=== PATIENT | male | born 1990 | race Caucasian/White ===

== ENCOUNTER 2022-08-21 23:57 | Emergency (ER) | payer SELFPAY ==
[2022-08-22] MEDS ORDERED: MAGNESIUM SULFATE 2 GRAM 2 GM/50 ML BAG IV ONE (00:48)
[2022-08-22] MEDS ORDERED: FOLIC ACID INJ 1 MG in SODIUM CHLORIDE 0.9% 1,000 ML IV STA ×2 (00:48→00:55)
[2022-08-22] MEDS ORDERED: THIAMINE INJ 100 MG in SODIUM CHLORIDE 0.9% 50 ML IV STA (00:48)
[2022-08-22] MEDS ORDERED: SODIUM CHLORIDE 0.9% 1,000 ML IV STA ×2 (00:49→11:50)
[2022-08-22] MEDS ORDERED: LORazepam 2 MG/ML VIAL IVP STA ×2 (00:49→11:50)
--- NOTE | 2022-08-22 00:51 | ED Physician Documentation ---
History of Present Illness - Stated complaint Stated Complaint: SOA - Chief complaint Chief Complaint: General - History obtained from History obtained from: Patient - History of Present Illness Timing: Today - Additonal information Additional information: 32-year-old [place] ortega indicates that he drinks regularly about 1/5/day of vodka and whiskey and that today he has developed a panic attack. He states that he feels very anxious and so much so that when he was driving on the way to the hospital here he had to ice puller put his flashers on and someone pulled up behind him and took him to the hospital. He states this is happened to him 1 other time he was in the hospital in [place] and was told at that time his alcohol level is too high and he was at risk for cirrhosis. The patient is a poor historian and has some latency in his speech when giving history. Review of Systems Constitutional: denies: Fever Eyes: denies: Decreased vision Ears: denies: Ear pain Nose: denies: Congestion Throat: denies: Sore throat Cardiac: denies: Chest pain / pressure Respiratory: denies: Dyspnea, Cough GI: denies: Abdominal Pain, Nausea, Vomiting, Constipation, Diarrhea : denies: Dysuria, Frequency Skin: denies: Rash Musculoskeletal: denies: Neck pain, Back pain, Extremity pain Neurologic: denies: Generalized weakness, Focal weakness, Numbness PD PAST MEDICAL HISTORY - Allergies Allergies/Adverse Reactions: Allergies Allergy/AdvReac Type Severity Reaction Status Date / Time No Known Drug Allergies Allergy Verified 08/22/22 00:22 PD ED PE NORMAL - Vitals Vital signs reviewed: Yes (Tachycardic tachypneic and hypertensive marked) - General General: Alert and oriented X 3, Well developed/nourished, Other (The patient has halting speech with significant latency and only after he speaks for a period of time to see a speech become more fluent. He does have alcohol on breath.) - HEENT HEENT: Atraumatic, PERRL, EOMI - Neck Neck: Supple, no meningeal sign, No bony TTP - Cardiac Cardiac: No murmur, Other (Tachycardic to 120) - Respiratory Respiratory: No respiratory distress, Clear bilaterally - Abdomen Abdomen: Normal bowel sounds, Soft, Non tender, Non distended, No organomegaly - Back Back: No CVA TTP, No spinal TTP - Derm Derm: Normal color, Warm and dry, No rash - Extremities Extremities: No deformity - Neuro Neuro: automatic folder seamer 2-12 intact, No motor deficit, No sensory deficit, Other (There is significant speech latency and delay in execution of motor commands.) Eye Opening: Spontaneous Motor: Obeys Commands Verbal: Oriented GCS Score: 15 - Psych Psych: Other (Mood is anxious and the affect is blunted) Results - Vitals Vitals: Vital Signs - 24 hr 08/22/22 08/22/22 08/22/22 00:19 00:24 01:00 Temperature 36.9 C Heart Rate 111 H 117 H 83 Respiratory 30 H 27 H 20 Rate Blood Pressure 152/114 H 141/88 H 136/92 H O2 Saturation 98 100 92 08/22/22 08/22/22 08/22/22 02:00 03:00 04:00 Temperature Heart Rate 82 89 95 Respiratory 18 17 20 Rate Blood Pressure 130/90 H 133/78 H 129/85 H O2 Saturation 96 93 95 08/22/22 08/22/22 08/22/22 05:00 06:00 08:00 Temperature Heart Rate 79 86 88 Respiratory 16 15 18 Rate Blood Pressure 137/85 H 129/85 H 130/74 O2 Saturation 96 95 96 Oxygen O2 Source Room air - Labs Labs: Laboratory Tests 08/22/22 08/22/22 08/22/22 00:58 00:58 00:58 WBC 8.1 RBC 5.12 Hgb 16.9 Hct 47.4 MCV 92.6 MCH 33.0 H MCHC 35.7 RDW 12.5 Plt Count 474 H MPV 8.9 Neut # (Auto) 3.0 Lymph # (Auto) 4.5 H Catron # (Auto) 0.5 Eos # (Auto) 0.0 Baso # (Auto) 0.0 Absolute Nucleated RBC 0.00 Nucleated RBC % 0.0 PT INR Sodium 140 Potassium 2.8 L Chloride 102 Carbon Dioxide 20 L Anion Gap 18.0 H BUN 9 Creatinine 1.0 Estimated GFR (MDRD) 87 L Glucose 100 Calcium 8.8 Total Bilirubin 0.5 AST 118 H ALT 282 H Alkaline Phosphatase 79 Total Protein 8.2 Albumin 4.9 Globulin 3.3 Albumin/Globulin Ratio 1.5 Lipase 33 TSH 6.23 H Thyroxine (T4) Urine Color Urine Clarity Urine pH Ur Specific Colo Urine Protein Urine Glucose (UA) Urine Ketones Urine Occult Blood Urine Nitrite Urine Bilirubin Urine Urobilinogen Ur Leukocyte Esterase Ur Microscopic Review Urine Culture Comments Urine Opiates Screen Ur Oxycodone Screen Urine Methadone Screen Ur Propoxyphene Screen Ur Barbiturates Screen Ur Tricyclics Screen Ur Phencyclidine Scrn Ur Amphetamine Screen U Methamphetamines Scrn U Benzodiazepines Scrn Urine Cocaine Screen U Cannabinoids Screen Ethyl Alcohol 351.2 Serum Ketones NEGATIVE 08/22/22 08/22/22 08/22/22 00:58 01:17 08:08 WBC RBC Hgb Hct MCV MCH MCHC RDW Plt Count MPV Neut # (Auto) Lymph # (Auto) Catron # (Auto) Eos # (Auto) Baso # (Auto) Absolute Nucleated RBC Nucleated RBC % PT 12.5 INR 1.1 Sodium Potassium Chloride Carbon Dioxide Anion Gap BUN Creatinine Estimated GFR (MDRD) Glucose Calcium Total Bilirubin AST ALT Alkaline Phosphatase Total Protein Albumin Globulin Albumin/Globulin Ratio Lipase TSH Thyroxine (T4) 6.95 Urine Color YELLOW Urine Clarity CLEAR Urine pH 6.0 Ur Specific Colo >=1.030 H Urine Protein TRACE Urine Glucose (UA) NEGATIVE Urine Ketones 15 H Urine Occult Blood NEGATIVE Urine Nitrite NEGATIVE Urine Bilirubin NEGATIVE Urine Urobilinogen 0.2 (NORMAL) Ur Leukocyte Esterase NEGATIVE Ur Microscopic Review NOT INDICATED Urine Culture Comments NOT INDICATED Urine Opiates Screen NEGATIVE Ur Oxycodone Screen NEGATIVE Urine Methadone Screen NEGATIVE Ur Propoxyphene Screen NEGATIVE Ur Barbiturates Screen NEGATIVE Ur Tricyclics Screen NEGATIVE Ur Phencyclidine Scrn NEGATIVE Ur Amphetamine Screen NEGATIVE U Methamphetamines Scrn NEGATIVE U Benzodiazepines Scrn POSITIVE H Urine Cocaine Screen NEGATIVE U Cannabinoids Screen POSITIVE H Ethyl Alcohol Serum Ketones PD Medical Decision Making - ED course Complexity details: reviewed results, re-evaluated patient, considered differential, d/w patient Reviewed Lab Results: We reviewed a complete blood count which was normal when reviewed coagulation parameters which were normal as well reviewed chemistries which showed a low potassium at 2.8 and elevation of the AST and ALT ALT in the 100s. A TSH was elevated at 6.23. Ethyl alcohol was 351 and serum ketones were negative ED course: 32-year-old male presenting to the emergency department with a panic attack appears intoxicated on arrival and he does appear anxious. He is administered some Ativan and a banana bag has some improvement. I did discuss with the patient alcohol treatment and he is willing to participate and is invested in treatment. At shift change the patient is intoxicated and sleeping but interested in alcohol services. We do not have a social professionals here today. Care is turned over to Dr. Carey. Departure - Departure Clinical Impression: Panic attack Alcohol intoxication Qualifiers: Complication of substance-induced condition: with delirium Qualified Code(s): F10.921 - Alcohol use, unspecified with intoxication delirium
[2022-08-22] MEDS ORDERED: FOLIC ACID IV STA ×5 (01:03)
[2022-08-22] MEDS ORDERED: [UNRECOGNIZED DRUG - OTHER] IV STA ×5 (01:03)
[2022-08-22] MEDS ORDERED: MULTIVITAMIN IV STA ×5 (01:03)
[2022-08-22] MEDS ORDERED: THIAMINE IV STA ×5 (01:03)
[2022-08-22] MEDS ORDERED: FOLIC ACID 5 MG/1 ML 10ML MDV ONE (01:12)
[2022-08-22] MEDS ORDERED: THIAMINE 100 MG/1 ML 2 ML MDV ONE (01:12)
[2022-08-22] MEDS ORDERED: MAGNESIUM SULFATE 1 GM/2 ML VIAL ONE (01:12)
[2022-08-22 01:18] LABS: BASOPHILS % (AUTO) 0.5 %; EOSINOPHILS % (AUTO) 0.5 %; HCT - HEMATOCRIT 47.4 % (42.0-52.0); HGB - HEMOGLOBIN 16.9 g/dL (14.0-18.0); LYMPHOCYTES # (AUTO) 4.5 10^3/uL (1.5-3.5); LYMPHOCYTES % (AUTO) 54.9 %; MEAN CORPUSCULAR HGB CONC 35.7 g/dL (32.0-36.0); MEAN CORPUSCULAR VOLUME 92.6 fL (80.0-94.0); MEAN PLATELET VOLUME 8.9 fL (7.4-11.4); MONOCYTES # (AUTO) 0.5 10^3/uL (0.0-1.0); MONOCYTES % (AUTO) 6.5 %; NEUTROPHILS % (AUTO) 37.5 %; PLT - PLATELET COUNT 474 10^3/uL (130-450); RED BLOOD COUNT 5.12 10^6/uL (4.70-6.10); RED CELL DISTRIBUTION WIDTH 12.5 % (12.0-15.0); WHITE BLOOD COUNT 8.1 x10^3/uL (4.8-10.8)
[2022-08-22 01:23] LABS: ALBUMIN 4.9 g/dL (3.2-5.5); ALBUMIN/GLOBULIN RATIO 1.5 (1.0-2.2); ALKALINE PHOSPHATASE 79 IU/L (42-121); ALT ALANINE AMINOTRANSFERASE 282 IU/L (10-60); AST ASPARTATE AMINOTRANSFERASE 118 IU/L (10-42); BILIRUBIN,TOTAL 0.5 mg/dL (0.2-1.0); BUN - BLOOD UREA NITROGEN 9 mg/dL (6-20); CALCIUM 8.8 mg/dL (8.5-10.3); CARBON DIOXIDE - CO2 20 mmol/L (21-32); CHLORIDE 102 mmol/L (101-111); ETOH - ETHANOL 351.2 mg/dL; GFR - MDRD 87 (>89); GLUCOSE 100 mg/dL (70-100); LIPASE 33 U/L (22-51); POTASSIUM 2.8 mmol/L (3.5-5.0); SODIUM 140 mmol/L (135-145); TOTAL PROTEIN 8.2 g/dL (6.7-8.2)
[2022-08-22 01:27] LABS: INR 1.1 (0.8-1.2); PT - PROTHROMBIN TIME 12.5 secs (9.9-12.6)
[2022-08-22] MEDS ORDERED: POTASSIUM CHLOR 10 MEQ/100 ML 10 MEQ/100 ML BAG IV ONE (01:29)
[2022-08-22] MEDS ORDERED: POTASSIUM CHLORIDE 20 MEQ TABLET PO STA (01:29)
[2022-08-22 01:31] LABS: KETONES, SERUM (ACETEST) NEGATIVE (NEGATIVE)
[2022-08-22 08:09] LABS: MUDS CUTOFF CONCENTRATIONS CUTOFF CONC BELOW:
[2022-08-22 08:12] LABS: BILIRUBIN,URINE NEGATIVE (NEGATIVE); GLUCOSE, URINE (UA) NEGATIVE (NEGATIVE); KETONES,URINE (UA) 15 mg/dL (NEGATIVE); LEUKOCYTE ESTERASE, URINE NEGATIVE (NEGATIVE); NITRITE,URINE NEGATIVE (NEGATIVE); OCCULT BLOOD,URINE NEGATIVE (NEGATIVE); PROTEIN,URINE TRACE mg/dL (NEGATIVE); UROBILINOGEN,URINE 0.2 (NORMAL) E.U./dL (NORMAL)
[2022-08-22 08:22] LABS: CLARITY,URINE CLEAR (CLEAR)
[2022-08-22 08:23] LABS: AMPHETAMINE SCREEN,URINE NEGATIVE (NEGATIVE); BARBITURATE SCREEN,UR NEGATIVE (NEGATIVE); BENZODIAZEPINES SCREEN, URINE POSITIVE (NEGATIVE); COCAINE SCREEN URINE NEGATIVE (NEGATIVE); METHADONE SCREEN, URINE NEGATIVE (NEGATIVE); METHAMPHETAMINES SCREEN, URINE NEGATIVE (NEGATIVE); OPIATE SCREEN, URINE NEGATIVE (NEGATIVE); OXYCODONE SCREEN, URINE NEGATIVE (NEGATIVE); PROPOXYPHENE SCREEN, URINE NEGATIVE (NEGATIVE); THC CANNABINOID SCREEN, URINE POSITIVE (NEGATIVE); TRICYCLIC ANTIDEPRESSANT,URINE NEGATIVE (NEGATIVE)
[2022-08-22] MEDS ORDERED: ONDANSETRON 4 MG/2 ML VIAL IVP STA (08:34)
[2022-08-22] MEDS ORDERED: PROMETHAZINE INJ 25 MG in SODIUM CHLORIDE 0.9% 50 ML IV STA (11:50)
--- NOTE | 2022-08-22 12:23 | ED Physician Documentation ---
ED Addendum - Addendum Addendum: 08/22/22 12:22 Reevaluated the patient at about noon. He is feeling better, though still having nausea and is now starting to feel shaky. He would like to go to detox. He states he has never had seizures before. He states his only drug use is marijuana. His tox urine was positive for benzodiazepines, but this is from the Ativan given last night. Contacted [facility] and they do have beds available. The patient will call back for a phone screen. 08/22/22 15:37 Patient is accepted to [facility] for detox. His heart rate and blood pressure both are improved. He feels much better. A cab will take him to detox. Departure - Departure Disposition: 01 Home, Self Care Clinical Impression: Panic attack, Hypokalemia, Dehydration Alcohol intoxication Qualifiers: Complication of substance-induced condition: with delirium Qualified Code(s): F10.921 - Alcohol use, unspecified with intoxication delirium Condition: Good Instructions: ED Alcohol Intoxication Comments: You have been accepted to [facility] for detox. A cab will take you there. Please return if you worsen Contact: [facility] [address] [place] [phone] Fax:
[2022-08-22 14:29] VITALS: BP 102/55
[2022-08-22] MEDS ORDERED: MULTIVITAMIN IV 10 ML VIAL TPN SCH (19:00)
== END 2022-08-22 15:55 | disposition home or self-care (01) ==
LOC: ED 23:57
DX: F41.0 Panic disorder [episodic paroxysmal anxiety] (principal); F10.121 Alcohol abuse with intoxication delirium; Y90.8 Blood alcohol level of 240 mg/100 ml or more
CPT/HCPCS: 36415; 80053; 80306; 80320; 81003; 82009; 83690; 84436; 84443; 85025; 85610; 96361; 96365; 96367; 96368; 96375; 96376; 99284; 99285; A9270; J2060; J3411; J7040; 81001; 87086